=== PATIENT | female | born 2000 | race African-American/Black ===

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

== ENCOUNTER 2021-06-11 11:12 | Emergency (ER) | payer BC ==
[~2021-06-11] VITALS: Ht 160 cm; Wt 63.5 kg
[~2021-06-11 11:12] MED LIST changes: +KEFLEX500 M1 PO; +PYRIDIUM200 MG PO; +TYLENOL WITH CO1 TA1 PO; +ZOFRAN ODT4 MG PO
[2021-06-11 13:15] LABS: URINE BLOOD TRACE (Negative); URINE CLARITY CLEAR; URINE COLOR YELLOW; URINE GLUCOSE-RANDOM NEGATIVE (Negative); URINE LEUKOCYTES-REFLEX NEGATIVE (Negative); URINE NITRITE-REFLEX NEGATIVE (Negative); URINE PROTEIN TRACE (Negative); URINE SPECIFIC GRAVITY >= 1.030 (1.005-1.030)
[2021-06-11 13:17] LABS: ICTOTEST (BILI CONFIRMATORY) Negative (Negative); URINE BILIRUBIN 1+ (Negative); URINE KETONES 3+ (Negative)
[2021-06-11 13:49] LABS: ABSOLUTE LYMPHOCYTES 1.5 thou/uL (0.8-5.3); ABSOLUTE MONOCYTES 0.6 thou/uL (0.0-1.2); ABSOLUTE NEUTROPHILS 3.4 thou/uL (1.6-8.1); BASOPHILS 0.5 %; EOSINOPHILS 0.2 %; HEMOGLOBIN 12.4 gm/dL (12.0-15.0); LYMPHOCYTES 27.5 %; MCH 29.6 pg (26.0-34.0); MCHC 33.5 g/dL (28.0-37.0); MCV 88.5 fL (80.0-100.0); MONOCYTES 10.8 %; MPV 7.6 fl. (7.2-11.1); NUCLEATED RBCS 0 /100WBC; PLATELET COUNT* 305 thou/uL (150-400); RBC 4.18 mil/uL (4.20-5.00); RDW-CV 12.9 % (10.5-14.5); WBC 5.6 thou/uL (4.0-11.0)
[2021-06-11 13:55] LABS: CALCIUM 9.3 mg/dL (8.5-10.1); CREATININE 0.7 mg/dL (0.6-1.3)
[2021-06-11 13:59] LABS: ALBUMIN 4.5 g/dL (3.4-5.0); TOTAL BILIRUBIN 0.7 mg/dL (<0.1-1.0); TOTAL PROTEIN 8.1 g/dL (6.4-8.2)
[2021-06-11 15:36] VITALS: BP 124/83
== END 2021-06-11 15:37 | disposition home or self-care (01) ==
LOC: M.ERS 11:12
PROVIDERS: Family Medicine; Physician Assistant
DX: O34.81 Maternal care for other abnormalities of pelvic organs, first trimester (principal); N83.201 Unspecified ovarian cyst, right side; Z3A.01 Less than 8 weeks gestation of pregnancy